=== PATIENT | female | born 1950 | race Caucasian/White ===

== ENCOUNTER → 2024-08-05 12:08 | Outpatient (BNVA) | payer BC, MEDICARE, SELFPAY | PROVIDERS: PCP Internal Medicine; Visit Provider Internal Medicine Endocrinology, Diabetes & Metabolism ==

== ENCOUNTER 2024-08-27 11:02 | Outpatient (REF) | payer BC, MEDICARE, SELFPAY ==
[2024-08-27 13:12] LABS: Free T4 (Free Thyroxine) 0.92 ng/dL (0.71-1.85)
--- OUTSIDE RECORDS SUMMARY | 2024-08-27 13:36 | XMS_ITS | Encounter Summary ---
Author Organization [facility] Address [address] [place] [address] Care Team Providers Care News Videographer Name Role Phone Joyce Covarrubias MD Primary Care Provider + [phone] Reason for Referral * Consultation (Routine) - Authorized Specialty Diagnoses / Procedures Referred By Roe miner Referred To Contact Plastic Surgery Diagnoses Ductal carcinoma in situ (DCIS) of right breast Briana Berger DO [address] [place] [address] Phone: tel: fax: Hans Lamas DO [address] [address] Phone: tel: fax: Referral ID Status Reason Start Date Expiration Date Visits Requested Visits Authorized [id number] Authorized Specialty Services Required 08/23/2024 08/23/2025 1 1 * Imaging (Routine) - Authorized Specialty Diagnoses / Procedures Referred By Roe miner Referred To Contact Radiology Diagnoses Ductal carcinoma in situ (DCIS) of right breast Encounter for screening mammogram for malignant neoplasm of breast Procedures MG Mammo Digital Screening Left Briana Berger DO [address] [place] [address] Phone: tel: fax: [facility] Referral ID Status Reason Start Date Expiration Date V isits Requested Visits Authorized [id number] Authorized 08/23/2024 08/23/2025 1 1 Reason for Visit * Reason Comments Follow-up Encounter Details Date Type Department Care Team (Late st Contact Info) Description 08/19/2024 11:30 AM EST Office Visit [facility] Hematology Oncology [address] [place] [phone] Briana Berger DO [address] [place] [address] Ductal carcinoma in situ (DCIS) of right breast (Primary Dx); Malignant neoplasm of middle lobe of right lung (CMS/HCC); Encounter for screening mammogram for malignant neoplasm of breast Social History Tobacco Use Types Packs/Day Years Used Date Smoking Tobacco: Former Cigarettes Q uit: 12/09/2016 Smokeless Tobacco: Never Alcohol Use Standard Drinks/Week Comments No 0 (1 standard drink = 0.6 oz pur e alcohol) Comments No Sex and Gender Information Value Date Recorded Sex Assigned at Not on file Legal Sex Female 8:39 AM EST Gender Identity Not on file Sexual Orientation Not on file documented as of this encounter Last Filed Vital Signs Vital Sign Reading Time Taken Comments Blood Pressure 114/66 08/19/2024 11:13 AM EST Pulse 93 08/19/2024 11:13 AM EST Temperature 36.4 ??C (97.5 ??F) 08/19/2024 11:[address] Respiratory Rate - - Oxygen Saturation 98% 08/19/2024 11:13 AM EST Inhaled Oxygen Concentration - - Weight 83.9 kg (185 lb) 08/19/2024 11:13 AM EST Height 157.5 cm (5' 2 ) 08/19/2024 11:13 AM EST Body Mass Index 33.84 08/19/2024 11:13 AM EST documented in this encounter Progress Notes * Briana Berger DO - 08/19/2024 11:30 AM EST Hematology/Oncology Progress Note 08/19/24 Subjective Patient identifier: 74 y.o. with history of right-sided DCIS and right lung cancer Interim history: Hermelinda presents today for follow-up. Reports that overall she is doing fine. She denies any chest pain, shortness of breath or persistent cough. She has no unintentional weight loss or severe fatigue. Reports that she still does have some concerns with her breast implant and would like to see plastic surgery. Constitutional: See above. Resp/CV: No cough, shortness of breath, chest pain GI: No nausea, vomiting, diarrhea, abdominal pain Skin: No rashes Neuro: No headaches, dizziness, neuropathy Musculoskeletal: No bone pain, no joint pain. Hem/Lymph : No bruising or bleeding Oncology history: The patient underwent a da Brittany right middle lobe wedge resection on 05/03/16 and pathology showeda minimally invasive adenocarcinoma, nonmucinous, lepidic growth pattern predominant. The tumor size was 0.65 cm. A Level 4R lymph node was biopsied and negative for tumor. 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 Subsequent to this original diagnosis the patient underwent evaluation and was found to have microinvasive disease involving the breast [address] of the chest 07/04/2022 no significant change compared to prior studies status post right middle lobectomy and similar appearing groundglass changes Objective Last Vitals Vitals: 08/19/24 1113 BP: 114/66 Pulse: 93 Temp: 36.4 ??C (97.5 ??F) SpO2: 98% ECO General: well appearing, in no acute distress HENT: no scleral icterus Lymph: No palpable cervical, supraclavicular or axillary adenopathy. Resp: clear to auscultation bilaterally Cardio: regular rate and rhythm, Abdomen: soft non tender, non distended Neuro: alert and oriented, normal speech Medications Current Outpatient Medications: cholecalciferol (VITAMIN D-3) 50 mcg (2,000 unit) tablet, Take 1 tablet (2,000 Units total) by mouth 1 (one) time each day., Disp: , Rfl: LISINOPRIL ORAL, Take by mouth., Disp: , Rfl: LORazepam (ATIVAN) 0.5 mg tablet, Take 1 tablet (0.5 mg total) by mouth every 6 hours as needed., Disp: , Rfl: meclizine (ANTIVERT) 25 mg tablet, TAKE 1 TABLET BY MOUTH THREE TIMES DAILY NEEDED FOR motion sickness, Disp: , Rfl: pravastatin (PRAVACHOL) 20 mg tablet, Take 1 tablet (20 mg total) by mouth 1 (one) time each day., Disp: , Rfl: traMADoL (ULTRAM) 50 mg tablet, Take 1 tablet (50 mg total) by mouth every 6 hours as needed for moderate pain or severe pain., Disp: , Rfl: Allergies Allergies Allergen Reactions Bee Venom Protein (Honey Bee) Anaphylaxis Hydrocodone-Acetaminophen Iodinated Contrast Media Morphine Past medical history, past surgical history, and family history reviewed. Medical history Diverticulosis Arthritis DCIS Lung cancer Surgical history Past Surgical History: Procedure Laterality Date MASTECTOMY Right 2018 Family history No family history on file. 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 MG Mammo Digital Screening w Brynn Left Result Date: 08/04/2024 Narrative: EXAM: MG MAMMO DIGITAL SCREENING W BRYNN LEFT EXAM DATE AND TIME:08/03/2024 9:38 AM HISTORY: screening; the patient has a history of right breast cancer treated withmastectomy in 2018. COMPARISON: 08/02/2023 through 02/05/2020 TECHNIQUE: Left digital breast tomosynthesis was performed in the MLO projection. Computer aided detection with iCAD ProFound AI 3D 3.1 was employed. TISSUE DENSITY: b: There are scattered areas of fibroglandular density. FINDINGS: No suspicious masses, grouped microcalcifications, or areas of architectural distortion are seen. The skin and vascularity are unremarkable. Impression: No mammographic evidence of malignancy. BI-RADS: Category 1: Negative RECOMMENDATION(S): 1: Routine screening mammogram LEFT in 1 year. -------- FINAL REPORT -------- Dictated By: JULIA CORONEL Dictated Date: 08/04/2024 12:48 ET Assigned Physician: JULIA CORONEL Reviewed and Electron ically Signed By: JULIA CORONEL Signed Date: 08/04/2024 12:54 ET Workstation ID: [id number] Transcribed By: Self Edit Transcribed Date: 08/04/2024 12:[address] Chest wo Contrast Result Date: 08/04/2024 Narrative: INDICATION: Non-small cell lung cancer, monitor. History of right- sided DCIS and right lung cancer status post right middle lobe wedge resection. TECHNIQUE: Multiple contiguous axial CT images were obtained of the chest without intravenous contrast. Multiplanar reformats were created andinterpreted. The CT scanner utilized low-dose iterative reconstruction technique with automatic exposure control based on patient size. DLP: 841.09 mGy-cm COMPARISON: July 2023. December 2022. FINDINGS: Lack of intravenous contrast limits evaluation of the emery, vascular structures and abdominal viscera. LUNGS/PLEURA: Central airways are patent. Postsurgical appearance right middle lobe. Bilateral groundglass pulmonary nodules similar to prior. For example: 9 mm groundglass nodule right upper lobe (image 68); similar to 2022 9 mm groundglass nodule/opacity in the right lower lobe (image 133);new from 2022 and similar to July 2023 6 mm groundglass nodule left lung apex (image 40); similar to 2022 7 mm groundglass nodule right lung apex (image 39); similar to 2022 MEDIASTINUM: Thyroid gland is unremarkable. No enlarged mediastinal lymph nodes. Nonenlarged right hilar lymph nodes. Nonenlarged pericardial lymph nodes. Mild coronary artery calcifications. MISCELLANEOUS: Right breast implant. No axillary lymphadenopathy. UPPER ABDOMEN: Hepatic steatosis. Status post cholecystectomy. BONES AND SOFT TISSUES: Scattered degenerative changes Impression: Right middle lobectomy with scattered groundglass nodules; similar to most recent prior. -------- FINAL REPORT -------- Dictated By: Amelia Clemons Dictated Date: 08/04/2024 04:16 ET Assigned Physician: Amelia Clemons Reviewed and Electronically Signed By: Amelia Clemons Signed Date: 08/04/2024 04:29 ET Workstation ID: [id number] Transcribed By: Self Edit Transcribed Date: 504:16 ET Assessment & Plan 74 y.o. year old presents for follow up of right lung cancer status post resection, right breast DCIS with microinvasive component status postmastectomy. Previously the patient completed 5 years of adjuvant hormonal therapy. She remains without evidenceof recurrent breast cancer. CT of the chest does show multiple persistent small groundglass nodulesthe largest 2 measuring 9 mm in the right upper and right lower lobes. Right-sided DCIS with microinvasion Status post right mastectomy with implant placement Completed course of anastrozole Ordered unilateral mammogram to be done in July 2025 Referral to plastic surgery at the patient request History of right lung cancer RUL nodule 9mm Given persistence of multiple groundglass nodules, I recommend we discussed the case at multidisciplinary tumor conference to evaluate if any role for PET scan or biopsy now. Otherwise, we will plan for for annual noncontrast CT scan and visit once a year Osteopenia- resolved Next DEXA due 2025, and will defer this to the PCP given patient is now off aromatase inhibitor therapy Sign Astrid Berger DO - Hematology/Oncology [facility] CC: Joyce Covarrubias MD documented in this encounter Plan of Treatment Upcoming Encounters Date Type Department Care Team (Late st Contact Info) Description 02/16/2025 10:30 AM EDT Office Visit [facility] Hematology Oncology [address] [place] [address] Briana Berger DO [address] [place] [address] Scheduled Orders Name Type Priority Associated Diagnoses Orde r Schedule MG Mammo Digital Screening Left Imaging Routine Ductal carcinoma in situ (DCIS) of right breast Encounter for screening mammogram for malignant neoplasm of breast Expected: 08/04/2025, Expires: 08/23/2025 Scheduled Referrals Name Type Priority Associated Diagnoses Order Schedule Ambulatory referral to Plastic Surgery Outpatient Referral Routine Ductal carcinoma in situ (DCIS) of right breast 1 Occurrences starting 08/23/2024 until 08/23/2025 documented as of this encounter Visit Diagnoses Diagnosis Ductal carcinoma in situ (DCIS) of right breast- Primary Malignant neoplasm of middle lobe of right lung (CMS/HCC) Encounter for screening mammogram for malignant neoplasm of breast documented in this encounter Historical Medications * This list may reflect changes made after this encounter. meclizine (ANTIVERT) 25 mg tablet TAKE 1 TABLET BY MOUTH THREE TIMES DAILY NEEDED FOR motion sickness 12/09/2023 added in this encounter Care Teams News Videographer Relationship Specialty Start Date End Date Joyce Covarrubias MD [address] [place] [id number] PCP - General 11/06/19 documented as of this encounter
--- OUTSIDE RECORDS SUMMARY | 2024-08-27 13:36 | XMS_ITS | Data Portability ---
Author Organization [place] - [facility], [facility] [place] Address [address] [facility] [place] [address] Assessment Encounter Date Assessment Date Assessment LastModified by Organization Details LastModified Time 11/20/2022 11/20/2022 We discussed her diagnosis. Spinal stenosis. Discussed that spinal stenosis has as a cardinal symptom neurogenic claudication which is lower extremity pain with walking. Instead she gets only low back pain. Given her atypical presentation we discussed treatment options. We started with nonoperative treatments which she is largely done the most of. She does have a potential RFA upcoming which she had several questions about. My opinion is reasonable to exhaust all nonoperative treatment options prior to considering operative intervention. Regarding operative intervention we discussed the role of laminectomy. The primary outcome regarding laminectomy is typically relief of lower extremity symptoms which she has none of. I did discuss that surgery could be considered however she would risk the possibility of surgery might not change her back pain symptoms. However she may find herself in a situation where she has no options other than to consider and undertake surgical intervention understanding the range of clinical outcomes that could be expected and what may or may not change, especially her back pain. She would like to undergo the RFA and if the RFA is not successful she will consider returning for consideration of operative intervention [email or web address] Not available 11/20/2022 13:53:14 Plan of Treatment Reminders Order Date Submit Date Provider Last Modified By Organization Details Last Modified Time Details Appointments None record ed. Lab None record ed. Referral None record ed. Procedures None record ed. Surgeries None record ed. Imaging None record ed. Medication Orders None record ed. Patient TargetsNo targets recorded. Patient Instructions Encounter Date Encounter Id Patient Instructions Last Modified By Organization Details Last Modified Time 11/20/2022 [id number] Possible L3-4 L4-5 UBLD (biportal endoscopic decompression) [email or web address] Not available 11/20/2022 13:58:51 Reason for Referral None Reported. Problems Name Problem SNOMED Code Status Onset Date Resolution Date Notes Provider Name and Address Organization Details Recorded Time Spinal stenosis of lumbar region 92009303 Active 023 Not Available [employer] 13:53:15 Chronic low back pain 575820614 Active 023 Not Available [employer] 10:59:48 Problem Notes None recorded. Procedures Surgical History Date Name Laterality Status Provider Name and Address Organization Details Recorded Time Orthopaedic Surgery completed Marcela Headley [place] - [facility] 11/20/2022 11:39:35 Imaging Results None recorded. Procedure Notes None recorded. Medical Equipment None Reported. Vitals None Recorded Social History Question Answer Notes LastModified by Organization D etails LastModified Time Are You Currently Employed? No [email or web address] Information not available 11/20/2022 Sex: Unknown Functional Status None recorded. Mental Status None recorded. Family History Relationship Description Onset Age of this Age Resolved Age Notes LastModified by Organization Details LastModified Time Unspecified Relation History of anesthesia [email or web address] Not available 11:39:09 Medical History Condition Response Weight Gain / Loss Y Osteoarthritis / Rheumatoid arthritis / Other Y High Blood Pressure Y Cancer Y Gynecological HistoryNo gynecological history recorded. Obstetrics History GPAL:G 0 P 0 0 0 0 Past Encounters Encounter ID Performer Location Encounter Start Date Encounter Closed Date Diagnosis/Indication Diagnosis SNOMED-CT Code Diagnosis ICD10 Code Diagnosis Note [id number] ALFRED COTO MD [facility] Office [address] [place] [phone] 11/20/2022 09:51:10 11/20/2022 12:18:10 Spinal stenosis of lumbar region 96013076 M48.061 Chronic low back pain 28 2566834 M54.50 Health Concerns Section Related Observation LastModified by Organization Detai ls LastModified Time None Recorded Concern Status LastModified by Organization Details LastModified Time None Recorded Advance Directives Directive None Recorded Payers Encounter Date Sequence Insurance Name Policy Number Policy Sandoval Covered Member ID Sandoval Member ID Guarantor Name 11/20/2022 2 [place]ICARE [place]: [employer] Ilene [place] [id number] Ilene Aroratriston 11/20/2022 1 SAUL-HELGA: SAUL ([facility]) [id number] R Vicente [place] [id number] Ilene Aroratriston Notes Date Note Type Note Provider Name and Address Organization Details Recorded Time 11/20/2022 text/html Chief complaint low back pain for several years Patient describes pain in both right and left sides pain at the lumbosacral junction without any pain radiating to the buttock thigh calf. Denies numbness or tingling in the lower extremities. She denies any urinary retention or any numbness around her vagina or labia or anus. She undergone years of treatment including physical therapy for a year at least, she has had several injections which provided relief only for 20 minutes but otherwise several other subsequent injections have not improved her pain. She notes her pain is substantially worse with standing or walking sitting she has no pain at all. MRI 01/15/2022 L3-4 bilateral lateral recess and central stenosis L4-5 bilateral lateral recess and central stenosis. ALFRED COTO MD [address] [place] [address], [phone], [facility] - [facility] 11/20/2022 13:59:01 OBGyn Episode No OBEpisode recorded.
--- OUTSIDE RECORDS SUMMARY | 2024-08-27 13:36 | XMS_ITS | Clinical Summary ---
Author Organization [facility] Address [address] [place] [address] Care Team Providers Care Environmental Planner Name Role Phone Joyce Covarrubias MD Primary Care Provide r Allergies Active Allergy Reactions Criticality Noted Date Comments Bee Sting 05/06/2018 Iodinated Contrast Media 07/13/2020 Morphine 05/06/2018 Hydrocodone-Acetaminophen 05/06/2018 Medications Medication Sig Dispensed Refills Start Date End Date Status traMADol (ULTRAM) 50 MG tablet Take 50 mg by mouth every 6 (six) hours as needed for pain. 0 Active Cholecalciferol 2000 units TABS Take 2,000 Units by mouth daily. 0 Active LORazepam (ATIVAN) 0.5 MG tablet Take 0.5 mg by mouth every 6 (six) hours as needed. 0 Active pravastatin (PRAVACHOL) tablet 20 mg Take 20 mg by mouth daily. 0 Active LISINOPRIL PO Take by mouth. 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 with microinvasive component 01/02/2023 Osteopenia 01/02/2023 Breast cancer 07/23/2018 Overview: Overview: 04/2018 Right, DCIS History of lung cancer 07/23/2018 Overview: Overview: Right Middle Lobe, T1a, N0, RML Lobectomy, CKD (chronic kidney disease) stage 3, GFR 30-59 ml/min 03/20/2018 Depression 03/20/2018 Diverticulosis 03/20/2018 Hip joint replacement status 03/20/2018 Overview: Overview: Right History of GI bleed 03/20/2018 History of squamous cell carcinoma 03/20/2018 Overview: Overview: leg Osteoarthritis 03/20/2018 Overview: Overview: Cervical,Thoracic & Lumbosacral Spine, Hips, Vitamin D deficiency 03/20/2018 Primary lung adenocarcinoma 08/06/2016 Overview: Last Assessment & Plan: Neuro: C/o R arm numbness and eye droop overnight, improved this AM. ? Secondary to PCEA. Epidural capped. 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 Prefers not to take NSAIDS given h/o CKD. CV: Telemetry. Home Crestor. Pulm: CT to WS, check 4h CXR. Ambulate. Nebs prn. Wean O2. GI: ADAT. Bowel regimen. Antiemetics prn. : Dc Eddy - DTV. K/Mg scales. Heme: SQ Heparin ppx. Hct 34 (38.6) - will repeat late AM and if stable dc nigel. Malignant neoplasm of middle lobe of right lung 07/31/2016 Bilateral hip pain 07/20/2016 Hyperlipidemia 07/04/2016 Social History Tobacco Use Types Packs/Day Years Used Date Smoking Tobacco: Former Cigarettes Q uit: 12/09/2016 Smokeless Tobacco: Never Alcohol Use Standard Drinks/Week Comments No 0 (1 standard drink = 0.6 oz pur e alcohol) Sex and Gender Information Value Date Recorded Sex Assigned at Not on file Gender Identity Not on file Sexual Orientation Not on file Job Start Date Occupation Industry Not on file Not on file Not on file Last Filed Vital Signs Vital Sign Reading Time Taken Comments Blood Pressure 131/65 02/05/2024 11:13 AM EDT Pulse 78 02/05/2024 11:13 AM EDT Temperature 36.5 ??C (97.7 ??F) 02/05/2024 11:13 AM E DT Respiratory Rate - - Oxygen Saturation 99% 02/05/2024 11:13 AM EDT Inhaled Oxygen Concentration - - Weight 82.1 kg (181 lb) 12/10/2019 10:35 AM EDT Height 157.5 cm (5' 2 ) 08/07/2023 11:07 AM EST Body Mass Index 33.11 12/10/2019 10:35 AM EDT Plan of Treatment Health Maintenance Due Date Last Done Comments Hepatitis C Screening 1950 Depression Screening 1963 BMI Counseling 1969 Preventative Health Evaluation 1969 DTap / Tdap / Td (1 - Tdap) 1970 Shingrix-Zoster Vaccine (1 of 2) 1970 Colon Cancer Screening (Colonoscopy) 02/04/1996 Breast Cancer Screening (Mammogram) 2001 Fall Risk Assessment 02/04/2016 Osteoporosis Screening (DEXA Scan) 02/04/2016 COVID-19 Vaccine (3 - Pfizer risk series) 10/05/2020 09/07/2020, 08/19/2020 Influenza Vaccine (#1) 2024 , 04/19/2022, 04/07/2021, Additional history exists RSV Adult > 60+ Yrs or (1 - 1-dose 75+ series) 2026 Pneumococcal Vaccine Completed 04/24/2019, 07/23/2017, 07/23/2017, Additional history exists Hepatitis B Vaccines Aged Out No long er eligible based on patient's age to complete this topic RSV Ped < 20 months Aged Out No longe r eligible based on patient's age to complete this topic Care Teams Environmental Planner Relationship Specialty Start Date End Date Joyce Covarrubias MD PCP - General Internal Medicine 11/06/19
--- OUTSIDE RECORDS SUMMARY | 2024-08-27 13:36 | XMS_ITS | Clinical Summary ---
Author Organization [facility] Address [address] [place] [address] Phone Care Team Providers Care Target Network Analyst Name Role Phone Joyce Covarrubias MD Primary Care Provider [phone] Allergies Active Allergy Reactions Criticality Noted Date Comments Bee Venom Protein (Honey Bee) Anaphylaxis High 05/06 Hydrocodone-Acetaminophen 03/20/2018 Iodinated Contrast Media 07/13/2020 Morphine 03/20/2018 Medications cholecalciferol (VITAMIN D-3) 50 mcg (2,000 unit) tablet Take 1 tablet (2,000 Units total) by mouth 1 (one) time each day. Active LISINOPRIL ORAL Take by mouth. Active LORazepam (ATIVAN) 0.5 mg tablet Take 1 tablet (0.5 mg total) by mouth every 6 hours as needed. Active pravastatin (PRAVACHOL) 20 mg tablet Take 1 tablet (20 mg total) by mouth 1 (one) time each day. 01/28/2022 Active traMADoL (ULTRAM) 50 mg tablet Take 1 tablet (50 mg total) by mouth every 6 hours as needed for moderate pain or severe pain. 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 ? Secondary to PCEA. Epidural capped. Dc [employer] and transition to PO pain meds. Prefers [...] 07/31/2016 Bilateral hip pain 07/20/2016 Hyperlipidemia 07/04/2016 Encounters Date Type Department Care Team Description 08/19/2024 11:30 AM EST Office Visit [facility] Hematology Oncology [address] [place] [phone] Chester Johnson DO Ductal carcinoma in situ (DCIS) of right breast (Primary Dx); Malignant neoplasm of middle lobe of right lung (CMS/HCC); Encounter for screening mammogram for malignant neoplasm of breast 08/06/2024 Telephone [facility] Hematology Oncology [address] [place] [address] [phone] Chester Johnson DO 08/03/2024 9:53 AM EST - 08/03/2024 11:59 PM EST Hospital Encounter [facility] CT Scan [address] [place] [address] Primary squamous cell carcinoma of right lung ([facility]) Discharge Disposition: Home or Self Care 08/03/2024 9:35 AM EST - 08/03/2024 11:59 PM EST Hospital Encounter [facility] [address] [place] [address] Encounter for screening mammogram for breast cancer Discharge Disposition: Home or Self Care from Last 3 Months Immunizations Name Administration Dates Next Due Pfizer SARS-CoV-2 COVID-19, mRNA, LNP-S, preservative free 09/07/2020,08/19/2020 Surgical History Surgery Date Site/Laterality Comments MASTECTOMY Right 2018 Medical History Medical History Date Comments Vitamin D deficiency 03/20/2018 DX:Vitamin D deficiency Osteoarthritis of spine 03/20/2018 DX:Osteo arthritis of spine;COMMENT:Cervical, Thoracic & Lumbosacral Depression 03/20/2018 DX:Depression Diverticulosis 03/20/2018 DX:Diverticulosi s ESRD (end stage renal diseas e) ([facility]) 03/20/2018 DX:ESRD (end stage renal dis ease) ([facility]) Hip joint replacement status 03/20/2018 DX: Hip joint replacement status History of GI bleed 03/20/2018 DX:History o f GI bleed Breast cancer ([facility]) Social History Tobacco Use Types Packs/Day Years [...] on file Sexual Orientation Not on file Obstetrics History Para Term AB IAB SAB Ectopic Multiple Livin g Live Births 2 Last Filed Vital Signs Vital Sign Reading [...] Mass Index 33.84 08/19/2024 11:13 AM EST Plan of Treatment Upcoming Encounters Date Type Department Care Team (Late st Contact Info) Description 02/16/2025 10:30 AM EDT Office Visit [facility] Hematology Oncology [address] [place] [phone] Chester Johnson, DO [address] [place] [address] Health Maintenance Due Date Last Done Comments Hepatitis A Vaccines (1 of 2 - Risk 2-dose series) 1970 Hepatitis B Vaccines (1 of 3 - Risk 3-dose series) 2011 RSV Immunization Patients 60+ Years Old (1 - Risk 60-74 years 1-dose series) 2011 DTaP,Tdap,and Td Vaccines (2 - Tdap) 09/23/2018 09/23/2008 COVID-19 Vaccine (3 - Pfizer risk series) 10/05/2020 09/07/2020, 08/19/2020 Cholesterol Screening (Lipid Panel) 06/01/2022 Colorectal Cancer Screening: Colonoscopy 06/01/2022 Depression Screening 06/01/2022 Falls Risk Assessment 06/01/2022 Hepatitis C Screening 06/01/2022 Lung Cancer Screening (Low Dose CT) 06/01/2022 Medicare Annual Wellness Visit 06/01/2022 Social Influencers of Health Screening 06/01/2022 Influenza Vaccine (#1) 2024 , 04/19/2022, 04/07/2021, Additional history exists Hypertension/CHF/CAD Annual BMP Blood Test 08/03/2024 Breast Cancer Screening 08/03/2026 08/03/2024, 04/23 Osteoporosis Screening (Bone Density Screening) 08/02/2033 08/02/2023, 08/01/2022, 07/31/2021, Additional history exists Pneumococcal Vaccine: 50+ Years Completed 04/24/2019, 07/23/2017, 06/02/2017 Zoster Vaccines Completed 01/06/2024, 10/18/2023 HIB Vaccines Aged Out No longer eligi ble based on patient's age to complete this topic HPV Vaccines Aged Out No longer eligi ble based on patient's age to complete this topic IPV Vaccines Aged Out No longer eligi ble based on patient's age to complete this topic MMR Vaccines Aged Out No longer eligi ble based on patient's age to complete this topic Meningococcal ACWY Vaccine Aged Out N o longer eligible based on patient's age to complete this topic Meningococcal B Vacine Aged Out No lo nger eligible based on patient's age to complete this topic RSV Immunization Patients Under 20 months Aged Out No longer eligible based on patient's age to complete this topic Varicella Vaccines Aged Out No longer eligible based on patient's age to complete this topic Procedures Procedure Name Priority Date/Time Associated Diagnosis Comments CT CHEST WO CONTRAST Routine 08/03/2024 10:34 AM EST Primary squamous cell carcinoma of right lung (CMS/HCC) MG MAMMO DIGITAL SCREENING W MANJIT LEFT Routine 08/03/2024 9:48 AM EST Encounter for screening mammogram for breast cancer JUNIOR DEXA AXIAL SKELETON Routine 08/02/2023 12:03 PM EST Encounter for screening for osteoporosis from Last 3 Months or Most Recently Relevant to Health Maintenance Results * CT Chest wo Contrast (08/03/2024 10:34 AM EST) Anatomical Region Laterality Modality Body Computed Tomogra phy 08/04/2024 4:16 AM EST Impressions 08/04/2024 4:29 AM EST Right middle lobectomy with scattered groundglass nodules; similar to most recent prior. -------- FINAL REPORT -------- Dictated By: Amelia Clemons Dictated Date: 08/04/2024 04:16 ET Assigned Physician: Amelia Clemons Reviewed and Electronically Signed By: Amelia Clemons Signed Date: 08/04/2024 04:29 ET Workstation ID: [id number] Transcribed By: Self Edit Transcribed Date: 08/04/2024 04:16 ET Narrative 08/04/2024 4:29 AM EST INDICATION: ??Non-small cell lung cancer, monitor. ??History of right-sided DCIS and right lung cancer status post right middle lobe wedge resection. TECHNIQUE: Multiple contiguous axial CT images were obtained of the chest without intravenous contrast. ??Multiplanar reformats were created and interpreted. The CT scanner utilized low-dose iterative reconstruction technique with automatic exposure control based on patient size. DLP: ??841.09 mGy-cm COMPARISON: ??July 2023. ??December 2022. FINDINGS: Lack of intravenous contrast limits evaluation of the emery, vascular structures and abdominal viscera. ?? LUNGS/PLEURA: Central airways are patent. ??Postsurgical appearance right middle lobe. Bilateral groundglass pulmonary nodules similar to prior. ??For example: 9 mm groundglass nodule right upper lobe (image 68); similar to 202 9 mm groundglass nodule/opacity in the right lower lobe (image 133); new from 2022 and similar to July 2023 6 mm groundglass nodule left lung apex (image 40); similar to 2022 7 mm groundglass nodule right lung apex (image 39); similar to 2022 ?? MEDIASTINUM: Thyroid gland is unremarkable. ??No enlarged mediastinal lymph nodes. ??Nonenlarged right hilar lymph nodes. ??Nonenlarged pericardial lymph nodes. ??Mild coronary artery calcifications. MISCELLANEOUS: Right breast implant. ??No axillary lymphadenopathy. UPPER ABDOMEN: ??Hepatic steatosis. ??Status post cholecystectomy. BONES AND SOFT TISSUES: Scattered degenerative changes Procedure Note Amelia Clemons MD - 08/04/2024 INDICATION: Non-small cell lung cancer, monitor. History of right-sidedDCIS and right lung cancer status post right middle lobe wedgeresection. TECHNIQUE: Multiple contiguous axial CT images were obtained of the chestwithout intravenous contrast. Multiplanar reformats were created andinterpreted. The CT scanner utilized low-dose iterative reconstructiontechnique with automatic exposure control based on patient size. DLP: 841.09 mGy-cm COMPARISON: July 2023. December 2022. FINDINGS: Lack of intravenous contrast limits evaluation of the emery,vascular structures and abdominal viscera. LUNGS/PLEURA: Central airways are patent. Postsurgical appearance rightmiddle lobe. Bilateral groundglass pulmonary nodules similar to prior. For example: 9 mm groundglass nodule right upper lobe (image 68); similar to 2022 9 mm groundglass nodule/opacity in the right lower lobe (image 133); newfrom 2022 and similar to July 2023 6 mm groundglass nodule left lung apex (image 40); similar to 2022 7 mm groundglass nodule right lung apex (image 39); similar to 2022 MEDIASTINUM: Thyroid gland is unremarkable. No enlarged mediastinal lymphnodes. Nonenlarged right hilar lymph nodes. Nonenlarged pericardiallymph nodes. Mild coronary artery calcifications. MISCELLANEOUS: Right breast implant. No axillary lymphadenopathy. UPPER ABDOMEN: Hepatic steatosis. Status post cholecystectomy. BONES AND SOFT TISSUES: Scattered degenerative changes IMPRESSION: Right middle lobectomy with scattered groundglass nodules; similar to mostrecent prior. -------- FINAL REPORT -------- Dictated By: Amelia Clemons Dictated Date: 08/04/2024 04:16 ET Assigned Physician: Amelia Clemons Reviewed and Electronically Signed By: Amelia Clemons Signed Date: 08/04/2024 04:29 ET Workstation ID: [id number] Transcribed By: Self Edit Transcribed Date: 08/04/2024 04:16 ET Chester Johnson DO IMG CT PROCEDURES Fin al Result * MG Mammo Digital Screening w Manjit Left (08/03/2024 9:48 AM EST) Anatomical Region Laterality Modality Breast Left Mammography 08/04/2024 12:4 8 PM EST Impressions 08/04/2024 12:54 PM EST No mammographic evidence of malignancy. BI-RADS: ??Category 1: Negative RECOMMENDATION(S): 1: Routine screening mammogram LEFT in 1 year. -------- FINAL REPORT -------- Dictated By: JEAN PAUL CORONEL Dictated Date: 08/04/2024 12:48 ET Assigned Physician: JEAN PAUL CORONEL Reviewed and Electronically Signed By: JEAN PAUL CORONEL Signed Date: 08/04/2024 12:54 ET Workstation ID: [id number] Transcribed By: Self Edit Transcribed Date: 08/04/2024 12:48 ET Narrative 08/04/2024 12:54 PM EST EXAM: MG MAMMO DIGITAL SCREENING W MANJIT LEFT EXAM DATE AND TIME: 08/03/2024 9:38 AM HISTORY: screening; the patient has a history of right breast cancer treated with mastectomy in 2018. COMPARISON: 08/02/2023 through 02/05/2020 TECHNIQUE: Left digital breast tomosynthesis was performed in the MLO projection. Computer aided detection with iCAD ProFound AI 3D 3.1 was employed. TISSUE DENSITY: b: There are scattered areas of fibroglandular density. FINDINGS: No suspicious masses, grouped microcalcifications, or areas of architectural distortion are seen. ??The skin and vascularity are unremarkable. Procedure Note Jean Paul Coronel MD - 08/04/2024 EXAM: MG MAMMO DIGITAL SCREENING W MANJIT LEFT EXAM DATE AND TIME: 08/03/2024 9:38 AM HISTORY: screening; the patient has a history of right breast cancertreated with mastectomy in 2018. COMPARISON: 08/02/2023 through 02/05/2020 TECHNIQUE: Left digital breast tomosynthesis was performed in the MLOprojection. Computer aided detection with iCAD ProFound AI 3D 3.1 wasemployed. TISSUE DENSITY: b: There are scattered areas of fibroglandular density. FINDINGS: No suspicious masses, grouped microcalcifications, or areas ofarchitectural distortion are seen. The skin and vascularity areunremarkable. IMPRESSION: No mammographic evidence of malignancy. BI-RADS: Category 1: Negative RECOMMENDATION(S): 1: Routine screening mammogram LEFT in 1 year. -------- FINAL REPORT -------- Dictated By: JEAN PAUL CORONEL Dictated Date: 08/04/2024 12:48 ET Assigned Physician: JEAN PAUL CORONEL Reviewed and Electronically Signed By: JEAN PAUL CORONEL Signed Date: 08/04/2024 12:54 ET Workstation ID: [id number] Transcribed By: Self Edit Transcribed Date: 08/04/2024 12:48 ET us Self Referral Sppl IMG BI PROCEDURES Final Resul t * JUNIOR DEXA AXIAL SKELETON (08/02/2023 12:03 PM EST) Anatomical Region Laterality Modality Mammography 08/02/2023 9:21 AM EST Narrative 08/02/2023 12:[address] [facility] Diagnostic Imaging Department [address] [place] [address] Patient: ??ILENE HENDERSON ?/Age/Sex: 1950 - 73 - F Unit#: ??[id number] ? Location/Status: ??SPDIMAM/REG CLI ? Mnemonic/Ordering Site: ??MAMDEXAAX/SPMAM Ordering Physician: ??CHESTER JOHNSON [facility] Dexa Axial Skeleton - 08/02/23 - 1019 Report Status:Signed HISTORY: ??The patient is a 73-year-old postmenopausal female with clinical concern for metabolic bone disease. ??The patient is undergone previous bilateral hip replacement surgery. FINDINGS: ??Dual energy x-ray absorptiometry of the lumbar spine is performed. The mean bone mineral density at L1-3 is 1.067 gm/cm2 which is 91% of that of young normals and 103% of that of age matched controls. This yields a T-score of -0.9 and a Z-score of 0.2 and there is therefore no evidence of osteoporosis or osteopenia here. IMPRESSION: ?? There is no evidence of osteoporosis or osteopenia. ??There has been a decrease of 0.3% in bone mineral density in the lumbar spine since the prior examination of 07/31/2021. Code 64627 Dictating Physician: ??JULIO CESAR NOE MD Electronically Signed by: ??JULIO CESAR NOE MD Dic Date/Time: ??08/02/23 1201 Sign date/Time: ??08/02/23 1203 Procedure Note Julio Cesar Noe MD - 02/10/2024 [facility] Diagnostic Imaging Department [address] [place] [address] Patient: ILENE HENDERSON D.O.B./Age/Sex: 1950 - 73 - F Unit#: [id number] Location/Status: [facility] Mnemonic/Ordering Site: [facility] Ordering Physician: CHESTER JOHNSON [facility] Dexa Axial Skeleton - 08/02/23 - 1019 Report Status:Signed HISTORY: The patient is a 73-year-old postmenopausal female withclinical concern for metabolic bone disease. The patient is undergone previousbilateral hip replacement surgery. FINDINGS: Dual energy x-ray absorptiometry of the lumbar spine isperformed. The mean bone mineral density at L1-3 is 1.067 gm/cm2 which is 91% of thatof young normals and 103% of that of age matched controls. This yields aT-score of -0.9 and a Z-score of 0.2 and there is therefore no evidence ofosteoporosis or osteopenia here. IMPRESSION: There is no evidence of osteoporosis or osteopenia. Therehas been a decrease of 0.3% in bone mineral density in the lumbar spine sincethe prior examination of 07/31/2021. Code 02319 Dictating Physician: JULIO CESAR NOE MD Electronically Signed by: JULIO CESAR NOE MD Dic Date/Time: 08/02/23 1201 Sign date/Time: 08/02/23 1203 Chester Fernandez Celine DO IMG BI PROCEDURES Fin al Result from Last 3 Months or Most Recently Relevant to Health Maintenance Insurance MEDICARE [facility] Care Teams Target Network Analyst Relationship Specialty Start Date End Date Joyce Covarrubias MD [address] [place] [address] [facility] - General 11/06/19
--- OUTSIDE RECORDS SUMMARY | 2024-08-27 13:36 | XMS_ITS | Encounter Summary ---
Author Organization [facility] Address [address] [place] [address] Care Team Providers Care General Lithographic Worker Name Role Phone Joyce Covarrubias MD Primary Care Provider [phone] Reason for Visit * Imaging (Routine) - Closed Specialty Diagnoses / Procedures Referred By Contac t Referred To Contact Radiology Diagnoses Encounter for screening mammogram for breast cancer Procedures MG Mammo Digital Screening w Manjit Left MG Mammo Digital Screening w Manjit bilat [facility], Self Referral [facility] Referral ID Status Reason Start Date Expiration Date Visits Re quested Visits Authorized [id number] Closed 06/09/2024 06/09/2025 1 1 Encounter Details Date Type Department Care Team (Latest Contact Info) Description 08/03/2024 9:35 AM EST - 08/03/2024 11:59 PM EST [facility] [address] [phone] Encounter for screening mammogram for breast cancer Discharge Disposition: Home or Self Care Social History Tobacco Use Types Packs/Day Years [...] Sign Reading Time Taken Comments Blood Pressure - - Pulse - - Temperature - - Respiratory Rate - - Oxygen Saturation - - Inhaled Oxygen Concentration - - Weight 86.2 kg (190 lb) 08/03/2024 9:42 AM EST Height 157.5 cm (5' 2 ) 08/03/2024 9:42 AM EST Body Mass Index 34.75 08/03/2024 9:42 AM EST documented in this encounter Medications at Time of Discharge cholecalciferol (VITAMIN D-3) 50 mcg (2,000 unit) tablet Take 1 tablet (2,000 Units total) by mouth 1 (one) time each day. LISINOPRIL ORAL Take by mouth. LORazepam (ATIVAN) 0.5 mg tablet Take 1 tablet (0.5 mg total) by mouth every 6 hours as needed. meclizine (ANTIVERT) 25 mg tablet TAKE 1 TABLET BY MOUTH THREE TIMES DAILY NEEDED FOR motion sickness 12/09/2023 pravastatin (PRAVACHOL) 20 mg tablet Take 1 tablet (20 mg total) by mouth 1 (one) time each day. 01/28/2022 traMADoL (ULTRAM) 50 mg tablet Take 1 tablet (50 mg total) by mouth every 6 hours as needed for moderate pain or severe pain. documented as of this encounter Discharge Disposition Disposition Code Departure Means Destination Home or Self Care documented in this encounter Plan of Treatment Upcoming Encounters Date Type Department Care Team (Late st Contact Info) Description 02/16/2025 10:30 AM EDT Office Visit [facility] Hematology Oncology [address] [place] [phone] Briana Berger DO [address] [place] [address] documented as of this encounter Procedures Procedure Name Priority Date/Time Associated Diagnosis Comments MG MAMMO DIGITAL SCREENING W MANJIT LEFT Routine 08/03/2024 9:48 AM EST Encounter for screening mammogram for breast cancer documented in this encounter Results * MG Mammo Digital Screening w Manjit [...] Signed Date: 08/04/2024 12:54 ET Workstation ID: [id number] Transcribed By: Self Edit Transcribed Date: 08/04/2024 [...] the MLO projection. Computer aided detection with InCytu AI 3D 3.1 was employed. TISSUE DENSITY: [...] in the MLOprojection. Computer aided detection with InCytu AI 3D 3.1 wasemployed. TISSUE DENSITY: b: [...] Signed Date: 08/04/2024 12:54 ET Workstation ID: [id number] Transcribed By: Self Edit Transcribed Date: 08/04/2024 12:48 ET us Self Referral Sppl IMG BI PROCEDURES Final Resul t documented in this encounter Visit Diagnoses Diagnosis Encounter for screening mammogram for breast cancer documented in this encounter Care Teams General Lithographic Worker Relationship Specialty Start Date End Date Joyce Covarrubias MD [address] [place] [address] PCP - General 11/06/19 documented as of this encounter
--- OUTSIDE RECORDS SUMMARY | 2024-08-27 13:36 | XMS_ITS | Encounter Summary ---
Author Organization [facility] Address [address] [place] [address] Care Team Providers Care Customer Expert Name Role Phone Joyce Covarrubias MD Primary Care Provider [phone] Encounter Details Date Type Department Care Team (Late st Contact Info) Description 08/06/2024 Telephone [facility] Hematology Oncology [address] [place] [phone] Briana Berger DO [address] [place] [address] Social History Tobacco Use Types Packs/Day Years [...] on file documented as of this encounter Progress Notes * Sandra Edmondson MA - 08/06/2024 4:17 PM EST Pt notified of results. Will mail copy of results to pt until she is able to access the portal. * Briana Berger DO - 08/06/2024 3:32 PM EST Please let her know her mammogram is normal, her CT scan shows lung nodules but are stable. She hasa visit in ten days on 08/19 at which time we will review in detail and discuss further. She will need to sign up to the new [employer] in order to have the results released to her portal, itdoes not appear she is active in the new My Chart * Shanel Massey - 08/06/2024 3:26 PM EST Patient calling again regarding results, adamant on receiving a call or having results released to her portal. * Shanel Massey - 08/06/2024 10:18 AM EST Patient calling for ct scan and mammogram results. Please call her at [phone] documented in this encounter Plan of Treatment Upcoming Encounters Date Type Department Care Team (Late st Contact Info) Description 02/16/2025 10:30 AM EDT Office Visit [facility] Hematology Oncology [address] [place] [phone] Briana Berger DO [address] [place] [address] documented as of this encounter Visit Diagnoses Not on filedocumented in this encounter Care Teams Customer Expert Relationship Specialty Start Date End Date Joyce Covarrubias MD [address] [place] [address] PCP - General 11/06/19 documented as of this encounter
--- OUTSIDE RECORDS SUMMARY | 2024-08-27 13:36 | XMS_ITS | Continuity of Care Document ---
Author Organization [facility] Address [address] [facility] [address] [place] [address]- Support Name Relationship Address Phone SHELL COSTELLO A Personal Relationship Unknown Unavailable TRZASKO, DALI Personal Relationship Unknown Unava ilable TRZASKO, DALI Personal Relationship Unknown Unava ilable TRZASKO, DALI spouse Unknown Unavailable TRZASKO, DALI Personal Relationship Unknown Unava ilable TRZASKO, DALI Personal Relationship Unknown Unava ilable TRZASKO, DALI spouse Unknown Unavailable TRZASKO, SHELL Personal Relationship Unknown Un available TRZASKO, DALI Personal Relationship Unknown Unava ilable TRZASKO, DALI D Personal Relationship Unknown Maya vailable TRZASKO, DALI Personal Relationship Unknown Unava ilable TRZASKO, DALI Personal Relationship Unknown Unava ilable TRZASKO, DALI Personal Relationship Unknown Unava ilable TRZASKO, DALI Personal Relationship Unknown Unava ilable TRZASKO, DALI Personal Relationship Unknown Unava ilable TRZASKO, DALI Personal Relationship Unknown Unava ilable TRZASKO, DALI Personal Relationship Unknown Unava ilable TRZASKO, SHELL Personal Relationship Unknown Un available KAYLEIGHSKOSAGARSHELL A Personal Relationship Unknown Unavailable TRZASKO, DALI Personal Relationship Unknown Unava ilable TRZASKO, DALI Personal Relationship Unknown Unava ilable TRZASKO, DALI Personal Relationship Unknown Unava ilable TRZASKO, DALI Personal Relationship Unknown Unava ilable TRZASKO, DALI Personal Relationship Unknown Unava ilable TRZASKO, DALI Personal Relationship Unknown Unava ilable TRZASKO, DALI Personal Relationship Unknown Unava ilable TRZASKO, DALI Personal Relationship Unknown Unava ilable TRZASKO, DALI Personal Relationship Unknown Unava ilable TRZASKO, SHELL Personal Relationship Unknown Un available TRZASKO, DALI Personal Relationship Unknown Unava ilable TRZASKO, SHELL Personal Relationship Unknown Un available TRANG DALI Personal Relationship Unknown Unava ilable ANISH BARRON child Unknown Unavailable DALI COSTELLO Personal Relationship Unknown Unava ilable DALI COSTELLO Personal Relationship Unknown Unava ilable Care Team Providers Care Assistant Store Manager Sales Name Role Phone Satish ESTRADA, Joyce Samuels Primary Care Phys[id number] Date[facility]s): [facility]/07[facility]24 - 08/14/24 [facility] Plastic Surgery [address] [place], [place] [address] Attending Physician: Raj Antunez MD Encounter Type: Office Visit Allergies, Adverse Reactions, Alerts Substance Criticality Severity Reaction Reaction Severity Status morphine arm blew up swollen entire arm and redness up entire arm hives, itching Active Contrast Dye hives Active sulfa drugs rash Patient reported Active Keflex Unable to assess criticality Unknown rash Active Vicodin hives, itching Activ e Bee Stings anaphylaxis Active Immunizations Given and Recorded Vaccine Date Status Refusal Reason influenza virus vaccine, inactivated 04/20/23 Abilio rded influenza virus vaccine, inactivated 04/19/22 Abilio rded influenza virus vaccine, inactivated 04/07/21 Abilio rded influenza virus vaccine, inactivated 02/16/20 Abilio rded influenza virus vaccine, inactivated 05/06/17 Abilio rded SARS-CoV-2 (COVID-19) mRNA BNT-162b2 vac 09/07/20 Recorded SARS-CoV-2 (COVID-19) mRNA BNT-162b2 vac 08/19/20 Recorded Influenza Virus Vaccine (oldterm) 02/04/20 Recorde d Influenza Virus Vaccine (oldterm) 03/26/19 Recorde d Influenza Virus Vaccine (oldterm) 04/15/18 Recorde d pneumococcal 23-valent vaccine 1 04/24/19 Given pneumococcal 13-valent vaccine 07/23/17 Recorded diphtheria/tetanus/pertussis, acel(DTaP) 09/23/08 Recorded Hepatitis B Vaccine (old term) 06/24/00 Recorded 1Result Comment: [facility]# [id number] Medications lisinopril 10 mg oral tablet See Instructions, TAKE 1 TABLET BY MOUTH DAILY, # 30 tablet, Refills 5, Maintenance, 04/16/24 8:44:00 AM EDT, Instructions Replace Required Details, Route to Pharmacy Electronically, [facility], 160, cm, 01/15/24 14:52:00 EDT, Height, 86.5, kg, 12/09/23 9:25:00 EDT, Dry Weight Start Date: 04/16/24 Status: Ordered Quantity: 30.0 Unit: tablet Repeat number: 1 LORazepam 0.5 mg oral tablet 1 tablet, By Mouth, Daily at bedtime, # 30 tablet, 0 Refills, Maintenance, 04/29/24 2:27:00 PM EST, [facility] [address] [place] [address], 160, cm, 01/15/24 14:52:00 EDT, Height, 86.5, kg, 12/09/23 9:25:00 EDT, Dry Weight Start Date: 04/29/24 Status: Ordered Quantity: 30.0 Unit: tablet Repeat number: 1 methocarbamol 750 mg oral tablet 2 tablet, By Mouth, 3 times a day, # 84 tablet, 0 Refills, Maintenance, 03/20/24 3:21:00 PM EDT, [facility], 160, cm, 01/15/24 14:52:00 EDT, Height, 86.5, kg, 12/09/23 9:25:00 EDT, Dry Weight Start Date: 03/20/24 Status: Ordered Quantity: 84.0 Unit: tablet Repeat number: 1 pravastatin 20 mg oral tablet 1, tablet, By Mouth, Daily, # 90 tablet, Refills 1, Maintenance, 07/22/24 10:31:00 AM EST, Route to Pharmacy Electronically, [facility], 160, cm, 07/14/24 9:37:00 EST, Height, 86.5, kg,12/09/23 9:25:00 EDT, Dry Weight Start Date: 07/22/24 Status: Ordered Quantity: 90.0 Unit: tablet Repeat number: 1 traMADol 50 mg oral tablet 2 tablet, By Mouth, Daily, # 60 tablet, 0 Refills, Maintenance, 08/10/24 9:06:00 AM EST, [facility] [address] [place] [address], 160, cm, 08/07/24 11:12:00 EST, Height, 86.5, kg, 12/09/23 9:25:00 EDT, Dry Weight Start Date: 08/10/24 Status: Ordered Quantity: 60.0 Unit: tablet Repeat number: 1 Vitamin D3 2000 intl units oral capsule 1 capsule = 2,000 International_Units, By Mouth, Daily at bedtime, 0 Refills, Maintenance, 04/06/1610:53:17 AM EDT Start Date: 04/06/16 Status: Ordered Repeat number: 1 Vitamin D3 2000 intl units oral capsule 1 capsule = 50 mcg, By Mouth, Daily, # 90 capsule, 3 Refills, Maintenance, 04/23/24 1:43:00 PM EDT,[facility] - [place], [place], Partial fill upon patient request if the prescription is for a schedule II opioid drug., 160, cm, 01/15/24 14:52:00 EDT, Height, 86.5, kg, 12/09/23 9:25:00 EDT, Dry Weight Start Date: 04/23/24 Status: Ordered Quantity: 90.0 Unit: capsule Repeat number: 4 Problem List Condition Confirmation Course Effective Dates Status H ealth Status Informant Acquired absence of right breast and nipple Confirmed Active Elevated alkaline phosphatase level Confirmed Active Benign polyp of colon Confirmed Active Chronic kidney disease, stage 3a 1 Confirmed Active Chronic lower back pain Confirmed Active Muscle cramp Confirmed Active Pancreatic cyst Confirmed Active Degenerative joint disease involving multiple joints Confirmed Active History of lung cancer Confirmed Active Hyperglycemia Confirmed Active Hyperlipidemia Confirmed Active HTN (hypertension) Confirmed Active Insomnia Confirmed Active 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 Major depression in remission Confirmed Active Migraine with typical aura Confirmed Active Obese class I Confirmed Active Medicare annual wellness visit, subsequent Confirmed Active Tremor, physiological Confirmed Active RLS (restless legs syndrome) Confirmed Active Fatty liver Confirmed Active Venous varices Confirmed Active 1Per chart review meets GFR criteria Vital Signs Most recent to oldest [Reference Range]: 1 Height 160 cm (08/07/24 11:12 AM) Weight 84.0 kg (08/07/24 11:12 AM) Body Mass Index [18.5-24.99 kg/m2] 32.81 kg/m2 *>HHI* (08/07/24 11:12 AM) Weight Obtained Via Standing scale (08/07/24 11:12 AM) Social History Social History Type Response Smoking Status Former smoker, quit more than 30 days ago; Other: quit in 2015; entered on: 04/23/23 Sex Sex Representation Female (finding) Implantable Device List Procedure Provider Procedure Date Device Type Site Reconstruction Breast First Stage Savage Dhaliwal MD 08/04/18 Unknown Breast Right Device Identifier Serial Number Lot or Batch Number Manufacturing Date Expiration Date Distinct Identification Code MRI Safety Implantable Status Assigning Authority Unknown [id number] Unknown 04/23/23 Unknown Unknown Active Unknown Patient Care team information Care Team Personnel Name: Dipak Gilliam MD Position: [facility] Renal MD Member Role: Lifetime Consulting Physician Address: [address] [place], [place] [id number] [facility] [place] [address]- Telecom: Name: Joyce Covarrubias MD Position: [facility] Physician - Primary Care Member Role: PCP Address: [address] [place] [id number] Telecom: Name: Shefali Gibbs Position: [facility] motor tune up specialist Member Role: Property Management Coordinator Name: Radha Griffin Position: [facility] Outreach Member Role: Lifetime Consulting Physician Name: Nirali Nguyen RN Position: [facility] OB RN Member Role: Primary Care Nurse Name: Marta Jackson RN Position: [facility] RN Member Role: Primary Care Nurse Care Team Related Persons Name: ANISH BARRON Name: DALI COSTELLO Insurance Providers Guarantor name: SHELL COSTELLO Health Plan Information #: 2 Payer: MEDICARE PART B OUTPT Member Number: [id number] Policy Number: NA Group Number: NA Health Plan Information #: 1 Payer: [employer]LECT Member Number: [id number] Policy Number: NA Group Number: [id number]
--- OUTSIDE RECORDS SUMMARY | 2024-08-27 13:36 | XMS_ITS | Encounter Summary ---
Author Organization [facility] Address [address] [place] [address] Care Team Providers Care Group Cio Name Role Phone Joyce Covarrubias MD Primary Care Provider + [phone] Reason for Referral * Imaging (Routine) - Closed Specialty Diagnoses / Procedures Referred By Roe miner Referred To Contact Radiology Diagnoses Primary squamous cell carcinoma of right lung (CMS/HCC) Procedures CT Chest wo Contrast Briana Berger DO [address] [place] [address] Phone: tel: fax: [address] [phone] Phone: tel: Referral ID Status Reason Start Date Expiration Date Visits Re quested Visits Authorized [id number] Closed 06/18/2024 06/18/2025 1 1 Reason for Visit * Imaging (Routine) - Closed Specialty Diagnoses / Procedures Referred By Roe miner Referred To Contact Radiology Diagnoses Primary squamous cell carcinoma of right lung (CMS/HCC) Procedures CT Chest wo Contrast Briana Berger DO [address] [place] [address] Phone: tel: fax: [address] [phone] Phone: tel: Referral ID Status Reason Start Date Expiration Date Visits Re quested Visits Authorized [id number] Closed 06/18/2024 06/18/2025 1 1 Encounter Details Date Type Department Care Team (Latest Contact Info) Description 08/03/2024 9:53 AM EST - 08/03/2024 11:59 PM EST Hospital Encounter [facility] CT Scan [address] [place] [address] Primary squamous cell carcinoma of right lung (CMS/HCC) Discharge Disposition: Home or Self Care Social [...] on file documented as of this encounter Medications at Time of Discharge [...] 02/16/2025 10:30 AM EDT Office Visit [facility] Hematology Oncology [address] [place] [id number] Briana Berger, [address] [place] [address] documented as of this encounter Procedures Procedure Name Priority Date/Time Associated Diagnosis Comments CT CHEST WO CONTRAST Routine 08/03/2024 10:34 AM EST Primary squamous cell carcinoma of right lung (CMS/HCC) documented in this encounter Results * CT Chest wo Contrast (08/03/2024 [...] Signed Date: 08/04/2024 04:29 ET Workstation ID: [id number] Transcribed By: Self Edit Transcribed Date: 08/04/2024 [...] Signed Date: 08/04/2024 04:29 ET Workstation ID: [id number] Transcribed By: Self Edit Transcribed Date: 08/04/2024 04:16 ET Briana Berger DO IMG CT PROCEDURES Fin al Result documented in this encounter Visit Diagnoses Diagnosis Primary squamous cell carcinoma of right lung (CMS/HCC) documented in this encounter Care Teams Group Cio Relationship Specialty Start Date End Date Joyce Covarrubias MD [address] [place] [address] PCP - General 11/06/19 documented as of this encounter
--- OUTSIDE RECORDS SUMMARY | 2024-08-27 13:36 | XMS_ITS | Clinical Summary ---
Author Organization [facility] Facility Address [address] [place] [address] Care Team Providers Care Health Physics Technician Name Role Phone Joyce Covarrubias MD Primary Care Provider Allergies Active Allergy Reactions Criticality Noted Date Comments Bee Venom Anaphylaxis High 05/06/2018 Cephalexin 08/30/2021 Other reaction(s): rash Hydrocodone-Acetaminop hen Hives 07/04/2016 Other reaction(s): hives, itching Iodinated Contrast Media Hives 08/01/2016 Other reaction(s): hives Morphine Swelling,Other (see comments) 07/04/2016 Sulfa Antibiotics 08/30/2021 Other reaction(s): Patient reported, rash Medications anastrozole (ARIMIDEX) 1 MG chemo tablet Take 1 mg by mouth daily 03/03/2020 Active LORazepam (ATIVAN) 0.5 MG tablet Take 0.5 mg by mouth every night 07/12/2020 Active pravastatin (PRAVACHOL) 20 MG tablet Take 20 mg by mouth daily Active traMADol (ULTRAM) 50 MG tablet Take 50 mg by mouth every 8 (eight) hours if needed 07/18/2020 Active lisinopril 10 MG tablet Take 10 mg by mouth 1 (one) time each day Active cholecalciferol (VITAMIN D-3) 50 MCG (2000 UT) capsule Take 1 capsule (2,000 Units total) by mouth 1 (one) time each day 90 capsule 5 04/22/2024 Active Active Problems Problem Noted Date Diagnosed Date Hypertension 08/30/2021 Major depression in remission 08/30/2021 Migraine with typical aura 08/30/2021 Restless legs 08/30/2021 Venous varices 08/30/2021 Hematuria, not otherwise specified 08/01/2021 Renal scarring 08/01/2021 Malignant tumor of breast 07/23/2018 Overview (07/31/2021): Overview: 04/2018 Right, DCIS Stage 3a chronic kidney disease 03/20/2018 Vitamin D deficiency, not otherwise specified History of gastrointestinal bleed 03/20/2018 Osteoarthritis 03/20/2018 Overview (07/31/2021): Overview: Cervical,Thoracic & Lumbosacral Spine, Hips, Malignant neoplasm of middle lobe of lung 2016 Dyslipidemia 07/04/2016 Resolved Problems Problem Noted Date Diagnosed Date Resolved Date Absence of breast 08/30/2021 08/28/2022 Benign polyp of colon 08/30/20212022 Chronic thoracic back pain 08/30/2021 0 08/28/2022 Cramp 08/30/2021 08/28/2022 Cyst of pancreas 08/30/2021 08/28/2022 Degenerative joint disease i nvolving multiple joints 08/30/2021 08/28/2022 Insomnia 08/30/2021 08/28/2022 Intraductal carcinoma of breast 08/30/2021 08/28/2022 H/O: malignant neoplasm 08/30/2021 03/0 12/2022 Hypertensive heart disease w ithout heart failure 08/10/2020 08/01/2021 Diverticular disease 03/20/2018 023 Depressive disorder 03/20/2018 08/29/19 23 History of squamous cell carcinoma 03/20/2018 08/28/2022 Overview (07/31/2021): Overview: Right Middle Lobe, T1a, N0, RML Lobectomy, Overview: leg History of repair of hip joint 03/20/2018 08/28/2022 Overview (07/31/2021): Overview: Right Hip pain 07/20/2016 08/28/2022 Adenocarcinoma of right lung 07/19/2016 08/28/2022 Immunizations Name Administration Dates Next Due Influenza Split High Dose Pr eservative Free IM 03/24/2019,06/02/2017,03/25/2013 Pneumococcal Conjugate 13-Valent 06/02/2017 Family History Medical History Relation Comments Cancer Father kidney cancer Diabetes Father Kidney disease Father kidney cancer Hypertension Sibling Relation Status Comments Father Mother Alive Sibling Social History Tobacco Use Types Packs/Day Years Used Date Smoking Tobacco: Former Cigarettes Smokeless Tobacco: Former Comments:Smoking History Inf o:Every day Alcohol Use Standard Drinks/Week Comments No 0 (1 standard drink = 0.6 oz pur e alcohol) Comments Unknown Sex and Gender Information Value Date Recorded Sex Assigned at Not on file Legal Sex Female 5:08 PM EST Gender Identity Not on file Sexual Orientation Not on file Last Filed Vital Signs Vital Sign Reading Time Taken Comments Blood Pressure 136/98 08/29/2022 10:19 AM EST Pulse 98 08/29/2022 10:19 AM EST Temperature - - Respiratory Rate - - Oxygen Saturation 97% 08/29/2022 10:19 AM EST Inhaled Oxygen Concentration - - Weight 86.4 kg (190 lb 6.4 oz) 08/29/2022 10:19 AM EST Height 157.5 cm (5' 2 ) 08/29/2022 10:19 AM EST Body Mass Index 34.82 08/29/2022 10:19 AM EST Plan of Treatment Health Maintenance Due Date Last Done Comments Breast Cancer Screening 1950 Colorectal Cancer Screening: Annual FOBT 02/04/2000 Colorectal Cancer Screening: Colonoscopy 02/04/2000 Colorectal Cancer Screening: Sigmoidoscopy 02/04/2000 Hepatitis B Vaccine (1 of 3 - Risk 3-dose series) 2011 Influenza Vaccine (#1) 2024 0, 03/26/2019, 03/24/2019, Additional history exists Pneumococcal Vaccine: 65+ Years Completed 04/24/2019, 07/23/2017, 07/23/2017, Additional history exists Insurance MEDICARE [facility] MEDICARE [facility] Care Teams Health Physics Technician Relationship Specialty Start Date End Date Joyce Covarrubias MD [address] [place] [id number] PCP - General Internal Medicine 08/10/20
== END 2024-08-27 11:03 | disposition home or self-care (01) ==
LOC: HO.LAB 11:02
PROVIDERS: PCP Internal Medicine; Visit Provider Internal Medicine Endocrinology, Diabetes & Metabolism
DX: E66.9 Obesity, unspecified (principal)
CPT/HCPCS: 36415; 84439; 84443

== ENCOUNTER 2024-09-02 09:56 | Outpatient (AMB) | payer BC, MEDICARE, SELFPAY ==
--- NOTE | 2024-09-02 09:58 | MHC.OFFVIS ---
Vital Signs 09/02/24 09:59 Height 5 ft 1.5 in Weight 188 lb 7.924 oz BMI 35.0 BP 128/82 Blood Pressure Location Lt brachial Position Sitting Pulse 97 Pulse Source Pulse Oximeter Pulse Oximetry (%) 100 Oxygen Delivery Method Room Air Intake Visit Reasons: Obesity Allergies Opioids - Morphine Analogues Allergy (Verified 09/02/24 10:01) hives HPI Comments Details: This is a 74-year-old female sent to endocrinology for evaluation of obesity. Had breast ca and gained 30 lbs for 5 yrs . Off medication for 1 yr Wt stable over last yr . Patient has tried diets of wt watchers, , Nutrisystem, watching carbs . Patient has not seen maintenance machine repairer. The patient has tried weight loss medications of Phen/Fen in distant past . There are no symptoms of hypothyroidism or Theresa syndrome. No snoring at nigt. No thyroid problems. The patient is a 74-year-old female presenting for follow up today with concerns related to obesity management. She reports continued difficulty in losing weight despite ongoing efforts and notes that her weight remains consistent. Previous discussions have included considering a referral to a maintenance machine repairer. Chronic kidney disease complicates potential treatment options, including some anti-obesity medications. The patient is contemplating pharmacotherapy options that may aid in weight management. Specific medication coverage requirements include a documented visit with a maintenance machine repairer. PFSH Medical History Obesity Surgical History Hx of breast reconstruction Hx of right mastectomy History of surgery History of oophorectomy, unilateral History of total hip replacement History of tubal ligation Hx of cholecystectomy Family History (Updated 09/02/24 @ 10:02 by Melody Antunez CMA) Father Cancer of kidney Social History (Updated 09/02/24 @ 10:02 by Melody Antunez CMA) Household Members: Spouse Housing: House Alcohol intake: never Patient Tobacco Use Status: Never used Tobacco Current occupational status: retired Physical Exam Vital Signs: Last Vital Signs Pulse 97 09/02/24 09:59 BP 128/82 09/02/24 09:59 Pulse Ox 100 09/02/24 09:59 Oxygen Delivery Method Room Air 09/02/24 09:59 BMI result Body Mass Index 35.0 Assessment & Plan Assessment & Plan (1) Obesity: Code(s): E66.9 - Obesity, unspecified Category: Medical Plan: 1. Obesity: The patient is encountering difficulties with weight loss efforts. Current management plans include a referral to a maintenance machine repairer, which is crucial for both dietary management and meeting insurance criteria for pharmacotherapy coverage options. The possibility of using semaglutide (Wegovy) is under consideration, contingent upon meeting necessary prerequisites. A follow-up with a nurse practitioner specializing in weight management is arranged to further evaluate and address the management strategy. 2. Chronic Kidney Disease: Coexisting with obesity, chronic kidney disease necessitates careful consideration during the selection of weight management strategies. The patient will be supported in managing CKD alongside obesity, endeavoring to optimize care decisions in alignment with potential pharmacological treatments considered. The patient had an opportunity to ask questions regarding treatment plan. The patient expressed understanding and agreement with the above treatment plan. Patient was informed and verbally consented to the use of an ambient scribe for clinic note documentation during this visit. Patient will follow up with Pascale Guerra NP in 1 month Coding Level of Care Code Est Pt Level 3 (98147) Diagnoses Obesity E66.9
[2024-09-02 09:59] VITALS: BP 128/82; PULSE 97; O2SAT 100; BMI 35.0
--- OUTSIDE RECORDS SUMMARY | 2024-09-02 11:09 | XMS_ITS | Data Portability ---
Author Organization [place] - [facility], [facility] Address [address] [place] [address] Assessment Encounter Date Assessment Date Assessment LastModified [...] By Organization Details Last Modified Time 11/20/2022 [id number] Possible L3-4 L4-5 UBLD (biportal endoscopic decompression) [email or web address] Not available 11/20/2022 13:58:51 Reason for Referral None Reported. Problems Name Problem SNOMED Code Status Onset Date Resolution Date Notes Provider Name and Address Organization Details Recorded Time Spinal stenosis of lumbar region 79518622 Active 023 Not Available [employer] 13:53:15 Chronic low back pain 682070731 Active 023 Not Available [employer] 10:59:48 Problem Notes None recorded. Procedures Surgical History Date Name Laterality Status Provider Name and Address Organization Details Recorded Time Orthopaedic Surgery completed Marcela Headley MA - [facility] 11/20/2022 11:39:35 Imaging Results None recorded. Procedure Notes None recorded. Medical Equipment None Reported. Vitals None Recorded Social History Question Answer Notes LastModified by Organization D etails LastModified Time Are You Currently Employed? No [email or web address] Information not available 11/20/2022 Sex: Unknown Functional Status None recorded. Mental Status None recorded. Family History Relationship Description Onset Age of this Age Resolved Age Notes LastModified by Organization Details LastModified Time Unspecified Relation History of anesthesia problem [email or web address] Not available 11:39:09 Medical History Condition Response Weight Gain / Loss Y Osteoarthritis / Rheumatoid arthritis / Other Y High Blood Pressure Y Cancer Y Gynecological HistoryNo gynecological history recorded. Obstetrics History GPAL:G 0 P 0 0 0 0 Past Encounters Encounter ID Performer Location Encounter Start Date Encounter Closed Date Diagnosis/Indication Diagnosis SNOMED-CT Code Diagnosis ICD10 Code Diagnosis Note [id number] ALFRED COTO MD [facility] Office [address] [place] [id number] 11/20/2022 09:51:10 11/20/2022 12:18:10 Spinal stenosis of lumbar region 61868776 M48.061 Chronic low back pain 27 2231554 M54.50 Health Concerns Section Related Observation LastModified by Organization Detai ls LastModified Time None Recorded Concern Status LastModified by Organization Details LastModified Time None Recorded Advance Directives Directive None Recorded Payers Encounter Date Sequence Insurance Name Policy Number Policy Sandoval Covered Member ID Sandoval Member ID Guarantor Name 11/20/2022 2 [place]ICARE [place]: [employer] Ilene Henedrson [id number] Ilene Aroratriston 11/20/2022 1 [facility]UL-[facility]: [facility]) [id number] R Vicente Henderson [id number] Ilene Aroratriston Notes Date Note Type [...] recess and central stenosis. ALFRED COTO MD [address] [place] [address], [id number], [facility] - [facility] 11/20/2022 13:59:01 OBGyn Episode No OBEpisode recorded.
--- OUTSIDE RECORDS SUMMARY | 2024-09-02 11:09 | XMS_ITS | Encounter Summary ---
Author Organization [facility] Address [address] [place] [address] Care Team Providers Care Stoneworker Name Role Phone Joyce Covarrubias MD Primary Care Provider [phone] Reason for Visit * Imaging (Routine) - Closed Specialty Diagnoses / Procedures Referred By Contac t Referred To Contact Radiology Diagnoses Encounter for screening mammogram for breast cancer Procedures MG Mammo Digital Screening w Manjit Left MG Mammo Digital Screening w Manjit bilat Sppl, Self Referral [facility] Referral ID Status Reason Start Date Expiration Date Visits Re quested Visits Authorized [id number] Closed 06/09/2024 06/09/2025 1 1 Encounter Details Date Type Department Care Team (Latest Contact Info) Description 08/03/2024 9:35 AM EST - 08/03/2024 11:59 PM EST Hospital [facility] [address] [phone] Encounter for screening mammogram for breast cancer [...] Description 02/16/2025 10:30 AM EDT Office Visit [facility] Hematology Oncology [address] [place] [address] Briana Berger DO [address] [place] [address] documented as of this encounter Procedures Procedure [...] Signed Date: 08/04/2024 12:54 ET Workstation ID: [id number] Transcribed By: Self Edit Transcribed Date: 08/04/2024 [...] the MLO projection. Computer aided detection with Scutum AI 3D 3.1 was employed. TISSUE DENSITY: [...] in the MLOprojection. Computer aided detection with Scutum AI 3D 3.1 wasemployed. TISSUE DENSITY: b: [...] Signed Date: 08/04/2024 12:54 ET Workstation ID: [id number] Transcribed By: Self Edit Transcribed Date: 08/04/2024 12:48 ET us Self Referral Sppl IMG BI PROCEDURES Final Resul t documented in this encounter Visit Diagnoses Diagnosis Encounter for screening mammogram for breast cancer documented in this encounter Care Teams Stoneworker Relationship Specialty Start Date End Date Joyce Covarrubias MD [address] [place] [address] PCP - General 11/06/19 documented as of this encounter
--- OUTSIDE RECORDS SUMMARY | 2024-09-02 11:10 | XMS_ITS | Clinical Summary ---
Author Organization [facility] Address [address] [place] [address] Phone Care Team Providers Care Correctional Cook Name Role Phone Joyce Covarrubias MD Primary Care Provider [phone] Allergies Active Allergy Reactions Criticality Noted Date [...] ? Secondary to PCEA. Epidural capped. Dc HEALTH FACILITIES SURVEYOR and transition to PO pain meds. Prefers [...] Description 08/19/2024 11:30 AM EST Office Visit [facility] Hematology Oncology [address] [place] [phone] Chester Johnson DO Ductal carcinoma in situ (DCIS) of right breast (Primary Dx); Malignant neoplasm of middle lobe of right lung (CMS/HCC); Encounter for screening mammogram for malignant neoplasm of breast 08/06/2024 Telephone [facility] Hematology Oncology [address] [place] [phone] Chester Johnson DO 08/03/2024 9:53 AM EST - 08/03/2024 11:59 PM EST Hospital Encounter [facility] CT Scan [address] [place] [address] Primary squamous cell carcinoma of right lung ([facility]) Discharge Disposition: Home or Self Care 08/03/2024 9:35 AM EST - 08/03/2024 11:59 PM EST Hospital [facility]counter [facility] [address] [place] [address] Encounter for screening mammogram for [...] s ESRD (end stage renal diseas e) ([facility]) 03/20/2018 DX:ESRD (end stage renal dis ease) ([facility]) Hip joint replacement status 03/20/2018 DX: Hip joint replacement status History of GI bleed 03/20/2018 DX:History o f GI bleed Breast cancer ([facility]) Social History Tobacco Use Types Packs/Day Years [...] Description 02/16/2025 10:30 AM EDT Office Visit [facility] Hematology Oncology [address] [place] [phone] Chester Johnson, DO [address] [place] [address] Health Maintenance Due Date Last Done Comments [...] Signed Date: 08/04/2024 04:29 ET Workstation ID: [id number] Transcribed By: Self Edit Transcribed Date: 08/04/2024 [...] Signed Date: 08/04/2024 04:29 ET Workstation ID: [id number] Transcribed By: Self Edit Transcribed Date: 08/04/2024 [...] Signed Date: 08/04/2024 12:54 ET Workstation ID: [id number] Transcribed By: Self Edit Transcribed Date: 08/04/2024 [...] Signed Date: 08/04/2024 12:54 ET Workstation ID: [id number] Transcribed By: Self Edit Transcribed Date: 08/04/2024 12:48 ET us Self Referral Sppl IMG BI PROCEDURES Final Resul t * JUNIOR DEXA AXIAL SKELETON (08/02/2023 12:03 PM EST) Anatomical Region Laterality Modality Mammography 08/02/2023 9:21 AM EST Narrative 08/02/2023 12:03 PM EST [facility] Diagnostic Imaging Department [address] [place] [address] Patient: ??ILENE HENDERSON ?/Age/Sex: 1950 - 73 - F Unit#: ??[id number] ? Location/Status: ??SPDIMAM/REG CLI ? Mnemonic/Ordering Site: ??MAMDEXAAX/SPMAM Ordering Physician: ??CHESTER JOHNSON [facility] Dexa Axial Skeleton - 08/02/23 - 1019 [...] since the prior examination of 07/31/2021. Code 89513 Dictating Physician: ??JULIO CESAR NOE MD Electronically Signed by: ??JULIO CESAR NOE MD Dic Date/Time: ??08/02/23 1201 Sign date/Time: ??08/02/23 1203 Procedure Note Julio Cesar Noe MD - 02/10/2024 [facility] Diagnostic Imaging Department [address] [place] [address] Patient: ILENE HENDERSON D.O.B./Age/Sex: 1950 - 73 - F Unit#: [id number] Location/Status: [facility] Mnemonic/Ordering Site: [facility] Ordering Physician: CHESTER JOHNSON Junior Dexa [...] spine sincethe prior examination of 07/31/2021. Code 23958 Dictating Physician: JULIO CESAR NOE MD Electronically Signed by: JULIO CESAR NOE MD Dic Date/Time: 08/02/23 1201 Sign date/Time: 08/02/23 1203 Chester Fernandez Celine DO IMG BI PROCEDURES Fin al Result from Last 3 Months or Most Recently Relevant to Health Maintenance Insurance MEDICARE [facility]) Care Teams Correctional Cook Relationship Specialty Start Date End Date Joyce Covarrubias MD [address] [place] [address] [facility] - General 11/06/19
--- OUTSIDE RECORDS SUMMARY | 2024-09-02 11:10 | XMS_ITS | Encounter Summary ---
Author Organization [facility] [facility] Address [address] [place] [address] Care Team Providers Care Vp Marketing Services And Skin Name Role Phone Joyce Covarrubias MD Primary Care Provider [phone] Encounter Details Date Type Department Care Team (Late st Contact Info) Description 08/06/2024 Telephone [facility] Hematology Oncology [address] [place] [phone] Briana Berger DO [address] [place] [address] Social History Tobacco Use Types Packs/Day Years [...] need to sign up to the new Kilihart in order to have the results released to her portal, itdoes not appear she is active in the new My Chart * Sahnel Massey - 08/06/2024 3:26 PM EST Patient calling again regarding results, adamant on receiving a call or having results released to her portal. * Shanel Massey - 08/06/2024 10:18 AM EST Patient calling for ct scan and mammogram results. Please call her at [phone] documented in this encounter Plan of Treatment Upcoming Encounters Date Type Department Care Team (Late st Contact Info) Description 02/16/2025 10:30 AM EDT Office Visit [facility] Hematology Oncology [address] [place] [address] Briana Berger DO [address] [place] [address] documented as of this encounter Visit Diagnoses Not on filedocumented in this encounter Care Teams Vp Marketing Services And Skin Relationship Specialty Start Date End Date Joyce Covarrubias MD [address] [place] [address] PCP - General 11/06/19 documented as of this encounter
--- OUTSIDE RECORDS SUMMARY | 2024-09-02 11:10 | XMS_ITS | Encounter Summary ---
Author Organization [facility] Address [address] [place] [address] Care Team Providers Care Nurses Director Name Role Phone Joyce Covarrubias MD Primary Care Provider [phone] Reason for Referral * Imaging (Routine) - Closed Specialty Diagnoses / Procedures Referred By Roe miner Referred To Contact Radiology Diagnoses Primary squamous cell carcinoma of right lung (CMS/HCC) Procedures CT Chest wo Contrast Briana Berger DO [address] [place] [address] Phone: tel: fax: [address] [address] Phone: tel: Referral ID Status Reason Start Date Expiration Date Visits Re quested Visits Authorized [id number] Closed 06/18/2024 06/18/2025 1 1 Reason for Visit * Imaging (Routine) - Closed Specialty Diagnoses / Procedures Referred By Roe miner Referred To Contact Radiology Diagnoses Primary squamous cell carcinoma of right lung (CMS/HCC) Procedures CT Chest wo Contrast Briana Berger DO [address] [place] [address] Phone: tel: fax: [address] [address] Phone: tel: Referral ID Status Reason Start Date Expiration Date Visits Re quested Visits Authorized [id number] Closed 06/18/2024 06/18/2025 1 1 Encounter Details Date Type Department Care Team (Latest Contact Info) Description 08/03/2024 9:53 AM EST - 08/03/2024 11:59 PM EST Hospital Encounter [facility] CT Scan [address] [place] [address] Primary squamous cell carcinoma of right lung [...] Description 02/16/2025 10:30 AM EDT Office Visit [facility] Hematology Oncology [address] [place] [phone] Briana Berger, [address] [place] [address] documented as of this encounter Procedures Procedure [...] Signed Date: 08/04/2024 04:29 ET Workstation ID: [id number] Transcribed By: Self Edit Transcribed Date: 08/04/2024 [...] Signed Date: 08/04/2024 04:29 ET Workstation ID: [id number] Transcribed By: Self Edit Transcribed Date: 08/04/2024 04:16 ET Briana Berger DO IMG CT PROCEDURES Fin al Result documented in this encounter Visit Diagnoses Diagnosis Primary squamous cell carcinoma of right lung (CMS/HCC) documented in this encounter Care Teams Nurses Director Relationship Specialty Start Date End Date Joyce Covarrubias MD [address] [place] [address] PCP - General 11/06/19 documented as of this encounter
--- OUTSIDE RECORDS SUMMARY | 2024-09-02 11:10 | XMS_ITS | Clinical Summary ---
Author Organization [facility] Address [address] [place] [address] Care Team Providers Care Falsework Builder Name Role Phone Joyce Covarrubias MD Primary [...] ? Secondary to PCEA. Epidural capped. Dc PASTORAL COUNSELOR and transition to PO pain meds. Prefers [...] age to complete this topic Care Teams Falsework Builder Relationship Specialty Start Date End Date Joyce Covarrubias MD PCP - General Internal Medicine 11/06/19
--- OUTSIDE RECORDS SUMMARY | 2024-09-02 11:10 | XMS_ITS | Clinical Summary ---
Author Organization [facility] Address [address] [place] [address] Care Team Providers Care Registered Account Administrator Name Role Phone Joyce Covarrubias MD Primary [...] 07/23/2017, 07/23/2017, Additional history exists Insurance MEDICARE [facility] MEDICARE [facility] Care Teams Registered Account Administrator Relationship Specialty Start Date End Date Joyce Covarrubias MD [address] [place] [address] PCP - General Internal Medicine 08/10/20
--- OUTSIDE RECORDS SUMMARY | 2024-09-02 11:10 | XMS_ITS | Encounter Summary ---
Author Organization [facility] Address [address] [place] [address] Care Team Providers Care Technical Support Intern Name Role Phone Joyce Covarrubias MD Primary Care Provider + [phone] Reason for Referral * Consultation (Routine) - Authorized Specialty Diagnoses / Procedures Referred By Roe miner Referred To Contact Plastic Surgery Diagnoses Ductal carcinoma in situ (DCIS) of right breast Briana Berger DO [address] [place] [address] Phone: tel: fax: Hans Lamas DO [address] [address] Phone: tel: fax: Referral ID Status Reason Start Date Expiration Date Visits Requested Visits Authorized [id number] Authorized Specialty Services Required 08/23/2024 08/23/2025 1 1 * Imaging (Routine) - Pending Review Specialty Diagnoses / Procedures Referred By Roe miner Referred To Contact Radiology Diagnoses Ductal carcinoma in situ (DCIS) of right breast Encounter for screening mammogram for malignant neoplasm of breast Procedures MG Mammo Digital Screening Left Briana Berger DO [address] [place] [address] Phone: tel: fax: [facility] Referral ID Status Reason Start Date Expiration Date V isits Requested Visits Authorized [id number] Pending Review 08/23/2024 08/23/2025 1 1 Reason for Visit * Reason Comments Follow-up Encounter Details Date Type Department Care Team (Late st Contact Info) Description 08/19/2024 11:30 AM EST Office Visit [facility] Hematology Oncology [address] [place] [phone] Briana Berger DO [address] [place] [address] Ductal carcinoma in situ (DCIS) of right [...] on file. 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 MG Mammo Digital Screening w Byrnn Left Result Date: 08/04/2024 Narrative: EXAM: MG MAMMO DIGITAL SCREENING W BRYNN LEFT EXAM DATE AND TIME:08/03/2024 9:38 AM HISTORY: screening; the patient has a history of right breast cancer treated withmastectomy in 2018. COMPARISON: 08/02/2023 through 02/05/2020 TECHNIQUE: Left digital breast tomosynthesis was performed in the MLO projection. Computer aided detection with Canesta[employer] Cancer AI 3D 3.1 was employed. TISSUE DENSITY: [...] Dictated Date: 08/04/2024 12:48 ET Assigned Physician: UJLIA CORONEL Reviewed and Electron ically Signed By: JULIA CORONEL Signed Date: 08/04/2024 12:54 ET Workstation ID: [id number] Transcribed By: Self Edit Transcribed Date: 08/04/2024 [...] Signed Date: 08/04/2024 04:29 ET Workstation ID: [id number] Transcribed By: Self Edit Transcribed Date: 504:16 [...] Sign Astrid Berger DO - Hematology/Oncology [facility] CC: Joyce Covarrubias MD documented in this encounter Plan of Treatment Upcoming Encounters Date Type Department Care Team (Late st Contact Info) Description 02/16/2025 10:30 AM EDT Office Visit [facility] Hematology Oncology [address] [place] [address] Briana Berger DO [address] [place] [address] Scheduled Orders Name Type Priority Associated Diagnoses [...] 12/09/2023 added in this encounter Care Teams Technical Support Intern Relationship Specialty Start Date End Date Joyce Covarrubias MD [address] [place] [address] PCP - General 11/06/19 documented as of this encounter
== END 2024-09-02 10:12 | disposition home or self-care (01) ==
LOC: HO.ENCR 09:56
PROVIDERS: PCP Internal Medicine; Visit Provider Internal Medicine Endocrinology, Diabetes & Metabolism
DX: E66.9 Obesity, unspecified (principal)
CPT/HCPCS: 99213

== ENCOUNTER 2024-10-13 09:13 | Outpatient (AMB) | payer BC, MEDICARE, SELFPAY ==
--- NOTE | 2024-10-13 07:54 | A.OFFVIS_ITS ---
Vital Signs 10/13/24 09:20 Height 5 ft 1.5 in Weight 186 lb 6.287 oz BMI 34.6 BP 124/78 Blood Pressure Location Rt brachial Position Sitting Pulse 75 Pulse Source Pulse Oximeter Pulse Oximetry (%) 98 Oxygen Delivery Method Room Air Intake Visit Reasons: Obesity Intake Note: Patient present today for a follow-up on Obesity, last seen by DR Vincent Sahni. Property Management Coordinator Required: No Accompanied by: Self / Same As Patient Allergies Opioids - Morphine Analogues Allergy (Verified 10/13/24 09:21) mark CABRERA Comments Details: This is a 74-year-old female sent to endocrinology for evaluation of obesity. She has been seen twice by Dr. Sahni. Had breast ca and gained 30 lbs for 5 yrs while on steroids. Off medication for over 1 yr. Wt has been stable over the last yr. Patient has tried: wt watchers, Nutrisystem, watching carbs. Patient has not seen speech correction assistant but has an appt in several weeks. The patient has tried weight loss medications of Phen/Fen in distant past. There are no symptoms of hypothyroidism or Cardwell syndrome. No snoring at night. No thyroid problems. Has Chronic kidney disease. Stage 3a. Labs have been requested. Her weight is down 2 pounds. She reports her PCP had previously filled out prior authorization for Wegovy which was denied based on the fact that weight loss medications were not covered Limited in exercise ability due to low back pain which is severe. She has undergone multiple treatments and has had physical therapy in the past. She is able to walk in the grocery store with the assistance of pushing a cart. [facility] Medical History (Updated 10/13/24 @ 11:08 by Pascale Dickerson NP) Obesity (BMI 30.0-34.9) Obesity Surgical History Hx of breast reconstruction Hx of right mastectomy History of surgery History of oophorectomy, unilateral History of total hip replacement History of tubal ligation Hx of cholecystectomy Family History Father Cancer of kidney Social History Household Members: Spouse Housing: House Alcohol intake: never Patient Tobacco Use Status: Never used Tobacco Current occupational status: retired Physical Exam Vital Signs: Last Vital Signs Pulse 75 10/13/24 09:20 BP 124/78 10/13/24 09:20 Pulse Ox 98 10/13/24 09:20 Oxygen Delivery Method Room Air 10/13/24 09:20 BMI result Body Mass Index 34.6 Const Other: Absence of Cushingoid features. Absence of acromegalic features. Neck exam reveals nl size thyroid about 15 gms. No thyroid nodules palpable. Heart S1 S2, Reg R/R. No M/R G. Skin exam reveals absence of vitiligo or acanthosis nigricans. Results Reviewed Results Reviewed: Laboratory Tests 08/27/24 11:22 TSH 1.70 Free T4 0.92 Assessment & Plan Assessment & Plan (1) Obesity (BMI 30.0-34.9): Code(s): E66.811 - Obesity, class 1 Category: Medical Plan: The patient is a 74-year-old with a BMI of 34.6. The bulk of her weight was gained while she was on steroids for treatment for breast cancer. She is limited in her walking. She is able to walk in the grocery store with the assistance of pushing a cart. I advised her that she should consider going to the grocery store daily and walking the perimeter and up and down the aisles if she is able to do so. She was given a copy of the plate method and we will be meeting with the speech correction assistant within the next week or 2. She plans to purchased the bulk of the learn program for weight management which has a self directed behavioral modification weight loss resource which deals in lifestyle, exercise, attitudes, relationships and nutrition. A prescription for Zepbound 2.50 sent. I reviewed the fried pay option of 380 dollars per month for his up on vial which she does not wish to do. She will f/u prn. Medications: New tirzepatide (weight loss) (Zepbound) for 4 weeks 2.5 mg (0.5 mL) subcut QWEEK 2 mL 11RF 28 days Coding Level of Care Code Est Pt Level 3 (06999) Complex EM visit Add On G2211 Diagnoses Obesity (BMI 30.0-34.9) E66.811 Time Spent (min) 30 Comment Time spent reviewing labs/provider notes, face to face, chart doc
[2024-10-13 09:20] VITALS: BP 124/78; PULSE 75; O2SAT 98; BMI 34.6
--- OUTSIDE RECORDS SUMMARY | 2024-10-13 09:55 | XMS_ITS | Data Portability ---
Author Organization [place] [facility], [facility] Address [address] [place] [address] Assessment Encounter Date Assessment Date Assessment LastModified [...] By Organization Details Last Modified Time 11/20/2022 [id number] Possible L3-4 L4-5 UBLD (biportal endoscopic decompression) [email or web address] Not available 11/20/2022 13:58:51 Reason for Referral None Reported. Problems Name Problem SNOMED Code Status Onset Date Resolution Date Notes Provider Name and Address Organization Details Recorded Time Spinal stenosis of lumbar region 63440941 Active 023 Not Available [employer] 13:53:15 Chronic low back pain 778405269 Active 023 Not Available [employer] 10:59:48 Problem Notes None recorded. Procedures Surgical History Date Name Laterality Status Provider Name and Address Organization Details Recorded Time Orthopaedic Surgery completed Marcela Headley [place] - [facility] 11/20/2022 11:39:35 Imaging Results None recorded. Procedure Notes None recorded. Medical Equipment None Reported. Vitals None Recorded Social History Question Answer Notes LastModified by Organization D etails LastModified Time Are You Currently Employed? No [email or web address] Information not available 11/20/2022 Sex: Unknown Functional Status None recorded. Mental Status None recorded. Family History Relationship Description Onset Age of this Age Resolved Age Notes LastModified by Organization Details LastModified Time Unspecified Relation History of anesthesia problem [email or web address] Not available 11:39:09 Medical History Condition Response High Blood Pressure Y Weight Gain / Loss Y Osteoarthritis / Rheumatoid arthritis / Other Y Cancer Y Gynecological HistoryNo gynecological history recorded. Obstetrics History GPAL:G 0 P 0 0 0 0 Past Encounters Encounter ID Performer Location Encounter Start Date Encounter Closed Date Diagnosis/Indication Diagnosis SNOMED-CT Code Diagnosis ICD10 Code Diagnosis Note [id number] ALFRED COTO MD [address] [address] 11/20/2022 09:51:10 11/20/2022 12:18:10 Spinal stenosis of lumbar region 82742675 M48.061 Chronic low back pain 27 2118669 M54.50 Health Concerns Section Related Observation LastModified by Organization Detai ls LastModified Time None Recorded Concern Status LastModified by Organization Details LastModified Time None Recorded Advance Directives Directive None Recorded Payers Encounter Date Sequence Insurance Name Policy Number Policy Sandoval Covered Member ID Sandoval Member ID Guarantor Name 11/20/2022 2 [place]ICARE [place]: [employer] Ilene Henderson [id number] Ilene Beatriz 11/20/2022 1 [place]: [facility] [id number] R Vicente Brown Daviddaryltriston [id number] Ilene Beatriz Notes Date Note Type Note Provider Name [...] recess and central stenosis. ALFRED COTO MD [address] [place] [address], [phone], [facility] - [facility] 11/20/2022 13:59:01 OBGyn Episode No OBEpisode recorded.
--- OUTSIDE RECORDS SUMMARY | 2024-10-13 09:55 | XMS_ITS | Clinical Summary ---
Author Organization [facility] Facility Address [address] [place] [address] Care Team Providers Care Lease Purchase Driver Name Role Phone Joyce Covarrubias MD Primary [...] Adenocarcinoma of right lung 07/19/2016 08/28/2022 Immunizations Immunization Administration Dates Next Due Influenza Split High [...] - Risk 3-dose series) 2011 Influenza Vaccine (Season Ended) 2025 02/04/2020, 03/26/2019, 03/24/2019, Additional history exists Pneumococcal Vaccine: 50+ Years Completed 04/24/2019, 07/23/2017, 07/23/2017, Additional history exists Pneumococcal Vaccine: Peds ( 0 to 5 Years) and At-Risk Patients (6 to 49 Years) Discontinued 04/24/2019, 07/23/2017, 07/23/2017, Additional history exists Insurance Medicare [facility] Medicare [facility] Care Teams Lease Purchase Driver Relationship Specialty Start Date End Date Joyce Covarrubias MD [address] [place] [address] PCP - General Internal Medicine 08/10/20
--- OUTSIDE RECORDS SUMMARY | 2024-10-13 09:55 | XMS_ITS | Clinical Summary ---
Author Organization [facility] Address [address] [place] [address] Care Team Providers Care Head Golf Professional Name Role Phone Joyce Covarrubias MD Primary [...] ? Secondary to PCEA. Epidural capped. Dc CATH LAB RADIOLOGY TECHNICIAN and transition to PO pain meds. Prefers [...] age to complete this topic Care Teams Head Golf Professional Relationship Specialty Start Date End Date Joyce Covarrubias MD PCP - General Internal Medicine 11/06/19
--- OUTSIDE RECORDS SUMMARY | 2024-10-13 09:55 | XMS_ITS | Clinical Summary ---
Author Organization [facility] Address [address] [place] [address] Phone Care Team Providers Care Fire Services Plumber Name Role Phone Joyce Covarrubias MD Primary [...] IS) of right breast with microinvasive component (CMS/HCC V24, CMS/HCC V28) 01/02/2023 Osteopenia 01/02/2023 Breast cancer ([facility]/HCC V24, [facility] V28) 019 Overview (03/06/2024): 04/2018 Right, DCIS CKD (chronic kidney disease) stage 3, GFR 30-59 ml/min ([facility] V24, [facility] V28) 03/20/2018 Depression 03/20/2018 Diverticulosis 03/20/2018 Hip joint replacement status 03/20/2018 Overview (03/06/2024): Right Osteoarthritis 03/20/2018 Overview (03/06/2024): Cervical,Thoracic & Lumbosacral Spine, Hips, Vitamin D deficiency 03/20/2018 [place] lung [place] [place] [facility] V28) 08/06/2016 Overview (03/06/2024): Last Assessment & Plan: Neuro: C/o R arm numbness and eye droop overnight, improved this AM. ? Secondary to PCEA. Epidural capped. 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 Prefers [...] neoplasm of middle lobe of right lung ([facility] V24, [facility] V28) 07/31/2016 Bilateral hip pain 07/20/2016 Hyperlipidemia 07/04/2016 Encounters Date Type Department Care Team Description 08/19/2024 11:30 AM EST Office Visit [facility] Hematology Oncology [address] [place] [phone] Chester Johnson DO Ductal carcinoma in situ (DCIS) of right breast (Primary Dx); Malignant neoplasm of middle lobe of right lung ([facility] V24, [facility] V28); Encounter for screening mammogram for malignant neoplasm of breast 08/06/2024 Telephone [facility] Hematology Oncology [address] [place] [address] CelineChester RebeccaDO 08/03/2024 9:53 AM EST - 08/03/2024 11:59 PM EST Hospital Encounter [facility] CT Scan [address] [place] [address] Primary squamous cell carcinoma of right lung [place] [place] [facility] [place] Discharge Disposition: Home or Self Care 08/03/2024 9:35 AM EST - 08/03/2024 11:59 PM EST Hospital Encounter [facility] [address] [place] [address] Encounter for screening mammogram for [...] s ESRD (end stage renal diseas e) ([facility] V24, [facility] V28) 03/20/2018 DX:ESRD (end stage renal dis ease) ([facility]) Hip joint replacement status 03/20/2018 DX: Hip joint replacement status History of GI bleed 03/20/2018 DX:History o f GI bleed Breast cancer ([facility] V24, [facility] V28) Social History Tobacco Use Types Packs/Day Years [...] [facility] [address] [place] [phone] Chester Johnson, [address] [place] [address] Health Maintenance Due Date Last Done Comments Hepatitis A Vaccines (1 of 2 - Risk 2-dose series) 1970 Hepatitis B Vaccines (1 of 3 - Risk 3-dose series) 2011 RSV Immunization Adult Patients (1 - Risk 60-74 years 1-dose series) [...] 06/01/2022 Social Influencers of Health Screening 06/01/2022 Hypertension/CHF/CAD Annual BMP Blood Test 08/03/2024 Influenza Vaccine (Season Ended) 2025 04/20/2023, 04/19/2022, 04/07/2021, Additional history exists Breast Cancer Screening 08/03/2026 08/03/2024, 04/23 Osteoporosis [...] age to complete this topic Meningococcal B Vaccine Aged Out No l onger eligible based on patient's age to complete [...] Primary squamous cell carcinoma of right lung ([facility] V24, [facility] V28) MG MAMMO DIGITAL SCREENING W MANJIT LEFT [...] Signed Date: 08/04/2024 04:29 ET Workstation ID: [id number] Transcribed By: Self Edit Transcribed Date: 08/04/2024 [...] Signed Date: 08/04/2024 04:29 ET Workstation ID: [id number] Transcribed By: Self Edit Transcribed Date: 08/04/2024 04:16 ET us Chester Johnson DO IMG CT PROCEDURES Fin [...] Signed Date: 08/04/2024 12:54 ET Workstation ID: [id number] Transcribed By: Self Edit Transcribed Date: 08/04/2024 [...] the MLO projection. Computer aided detection with [employer] AI 3D 3.1 was employed. TISSUE DENSITY: [...] in the MLOprojection. Computer aided detection with [employer] AI 3D 3.1 wasemployed. TISSUE DENSITY: b: [...] Signed Date: 08/04/2024 12:54 ET Workstation ID: [id number] Transcribed By: Self Edit Transcribed Date: 08/04/2024 12:48 ET us Self Referral Sppl IMG BI PROCEDURES Final Resul t * JUNIOR DEXA AXIAL SKELETON (08/02/2023 12:03 PM EST) Anatomical Region Laterality Modality Mammography 08/02/2023 9:21 AM EST Narrative 08/02/2023 12:03 PM EST [facility] Diagnostic Imaging Department [address] [place] [id number] Patient: ??ILENE HENDERSON ?/Age/Sex: 1950 - 73 - F Unit#: ??[id number] ? Location/Status: ??SPDIMAM/REG CLI ? Mnemonic/Ordering Site: ??[facility]DEXAAX/SPMAM Ordering Physician: ??CHESTER JOHNSON Junior Dexa Axial Skeleton - 08/02/23 [...] since the prior examination of 07/31/2021. Code 80129 Dictating Physician: ??JULIO CESAR NOE MD Electronically Signed by: ??JULIO CESAR NOE MD Dic Date/Time: ??08/02/23 1201 Sign date/Time: ??08/02/23 1203 Procedure Note Julio Cesar Noe MD - 02/10/2024 [facility] Diagnostic Imaging Department [address] [place] [address] Patient: ILENE HENDERSON D.O.B./Age/Sex: 1950 - 73 - F Unit#: [id number] Location/Status: SPDIMA/REG CLI [facility] Ordering Physician: CHESTER JOHNSON Junior Dexa [...] spine sincethe prior examination of 07/31/2021. Code 46594 Dictating Physician: JULIO CESAR NOE MD Electronically Signed by: JULIO CESAR NOE MD Dic Date/Time: 08/02/23 1201 Sign date/Time: 08/02/23 1203 Chester Johnson DO IMG BI PROCEDURES Fin al Result from Last 3 Months or Most Recently Relevant to Health Maintenance Insurance MEDICARE [facility]) Care Teams Fire Services Plumber Relationship Specialty Start Date End Date Joyce Covarrubias MD [address] [place] [address] PCP - General 11/06/19
== END 2024-10-13 10:20 | disposition home or self-care (01) ==
LOC: HO.ENCR 09:13
PROVIDERS: PCP Internal Medicine; Visit Provider Nurse Practitioner Adult Health
DX: E66.811 Obesity, class 1 (principal)
CPT/HCPCS: 99213

== ENCOUNTER → 2024-10-13 09:13 | Outpatient (BNVA) | payer BC, MEDICARE, SELFPAY | PROVIDERS: PCP Internal Medicine; Visit Provider Nurse Practitioner Adult Health ==